=== PATIENT | female | born 1965 | race Caucasian/White ===

== ENCOUNTER 2017-10-08 16:46 | Outpatient (CLI) | END 2017-10-08 16:47 | disposition short-term general hospital (02) | LOC: AMBL 16:46 | PROVIDERS: ATTEND Internal Medicine | DX: M25.531 Pain in right wrist (principal); M79.631 Pain in right forearm; W01.0XXA Fall on same level from slipping, tripping and stumbling without subsequent striking against object, initial encounter; Y92.59 Other trade areas as the place of occurrence of the external cause ==